=== PATIENT | female | born 2000 | race American Indian/Alaskan Native ===

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

== ENCOUNTER → 2023-03-13 | Outpatient (CLI) | payer OTHER ==
[~2023-03-13] MED LIST: ISOVUE-300 61% 100ML VIAL As Ordered ONE; LIDOCAINE 1% MDV 20ML VIAL As Ordered ONE; TRIAMCINOLONE ACETONIDE SUSP 40MG/ML 1ML VIAL As Ordered ONE
== END ==
LOC: M RAD 11:17
PROVIDERS: ATTEND Physician Assistant Surgical
DX: S73.121A Ischiocapsular ligament sprain of right hip, initial encounter (principal); X58.XXXA Exposure to other specified factors, initial encounter; Y92.9 Unspecified place or not applicable
CPT/HCPCS: 20610; 77002; J3301; Q9967